=== PATIENT | male | born 1970 | race Caucasian/White ===

== ENCOUNTER 2016-05-30 12:22 | Emergency (ER) | payer SELFPAY ==
[2016-05-30 13:22] VITALS: TEMP 97.7; BMI 28.0
[2016-05-30] MEDS ORDERED: AMOXICILLIN/CLAVULANATE 875 MG TAB PO ONE (14:19)
[2016-05-30] MEDS ORDERED: PREDNISONE 20 MG TAB PO ONE (14:19)
--- NOTE | 2016-05-30 14:21 | EDPRACDOC ---
- General Information Chief Complaint: Flu-Like Symptoms Stated Complaint: SINUS PAIN/COUGH Time Seen by Provider: 05/30/16 14:04 Information Source: Patient Mode Of Arrival: Car Home Medications: Home Medications Amoxicillin/Clavulanate Potas. [Augmentin] 875 mg PO BID #20 tab 05/30/16 Methylprednisolone [Medrol] 4 mg PO DAILY #1 tab.ds.pk 05/30/16 Allergies/Adverse Reactions: Allergies Allergy/AdvReac Type Severity Reaction Status Date / Time Penicillins Allergy Mild Hives* Verified 05/30/16 14:17 tramadol Allergy Nausea/Vomi Verified 05/30/16 14:17 ting - History of Present Illness Symptoms Started: SEVERAL DAYS AGO HPI: PT PRESENTS WITH COUGH, FACIAL PAIN AND PRESSURE, EAR PAIN THAT BEGAN SEVERAL DAYS AGO. Symptoms: Reports: Cough, Earache, Nasal Symptoms Recently Treated Infections:: Denies: Otitis media, Pneumonia, URI Recent Medications: Reports: None Relevant History Of: Reports: None Shortness of Breath: None Cough Frequency: Intermittent Cough Description: Reports: Moist, Congested Rhinorrhea: Reports: Green Ear Symptoms: Reports: Earache ED Past Medical History - History Reviewed Yes Nurses notes reviewed and agree except as marked - Patient Medical History GI/ History: Reports: Gastroesophageal Reflux Psychological History: Denies: Depression - Social Medical History Smoking Status: Heavy tobacco smoker (5 or more cigarettes/day or daily pipe/ cigar) EDM Review of Systems - Review of Systems ROS Negative Except as Marked: Yes All systems reviewed and were negative except as marked - Physical Exam Constitutional: Alert Oriented to: Time, Person, Place Last recorded Vital Signs: Last Vital Signs Temp 97.7 F 05/30/16 13:21 Pulse 86 05/30/16 13:21 Resp 18 05/30/16 13:21 BP 133/76 05/30/16 13:21 Pulse Ox 97 05/30/16 13:21 Oxygen Pulse Oxygen Saturation 97 O2 Device Oxygen Flow Rate Fraction of Inspired Oxygen ( FIO2) - HEENT Head: Normal ( normocephalic) Eye Exam: Normal (PERRL, EOMI, Sclera white) Oropharynx: Red Tympanic Membrane: Redness Nose: Congestion Neck: Normal (FROM, trachea at midline) - Respiratory/Cardiovascular Respiratory: Normal - CTA (BBS clear to auscultation without adventitious sounds ) Cardiovascular: Normal (RRR without murmur, gallop or rub) - GI Auscultation: Normal (NABS) Palpation: Normal (Soft,No rebound or guarding, non distended) Tenderness: Non tender Vela's Sign: Negative Rectal Exam: Deferred - Musculoskeletal Back: Normal (Non-Tender) Extremities: Normal (Normal tone, Pulses 2+ No cyanosis or edema, FROM) - Integumentary Skin: Normal, Warm, Dry Lymphatics: Normal (no adenopathy) - Neurologic Memory Impaired: Normal Motor Function: Normal (Normal tone, Pulses 2+ No cyanosis or edema, FROM) Cranial Nerve: Normal (CN II-X11 intact sensation, strength 5/5) Cerebellar: Normal Mood Description: Normal Perception: Normal - Differential Diagnosis Sinusitis Decision Time to Discharge: 14:21 - Departure Disposition: Home Condition: Stable Final Diagnosis: Sinusitis Qualifiers: Sinusitis location: frontal Chronicity: acute Recurrence: non-recurrent Qualified Code(s): J01.10 - Acute frontal sinusitis, unspecified Instructions: Sinusitis (ED) Education/Counseling Given To: Patient Education/Counseling Given Regarding: Diagnosis, Treatment, Prognosis, Follow Up Referrals: Allan Tenorio MD [Staff Physician] - One Week Prescriptions: New Amoxicillin/Clavulanate Potas. [Augmentin] 875 mg PO BID #20 tab Methylprednisolone [Medrol] 4 mg PO DAILY #1 tab.ds.pk Additional Instructions: INCREASE FLUID INTAKE. FOLLOW UP WITH PRIMARY CARE PROVIDER NEXT WEEK. TAKE ALL ANTIBIOTICS PRESCRIBED. RETURN TO THE ED FOR WORSENING SYMPTOMS OR CONCERNS.
[2016-05-30 15:36] VITALS: BP 130/68; PULSE 81
== END 2016-05-30 14:29 | disposition home or self-care (01) ==
LOC: EDMC 12:22
DX: J01.10 Acute frontal sinusitis, unspecified (principal)
CPT/HCPCS: 99282; J3490